=== PATIENT | male | born 1950 | race Caucasian/White ===

== ENCOUNTER 2018-08-27 13:36 | Emergency (ER) | payer BC ==
[~2018-08-27] VITALS: Ht 175.3 cm; Wt 88.5 kg
--- NOTE | 2018-08-27 14:11 | PHYS DOC ---
Adult General Chief Complaint Chief Complaint: ABDOMINAL PAIN HPI HPI Patient is a 68 year old male presents for evaluation of upper abdominal pain that radiates up to his chest. He reports the last couple of days he has been fixing up his house to be put on the market. He sat down to have lunch today, was eating a pizza when he started having upper abdominal pain that started radiating up through his chest. He reports history of some shortness of breath, this is chronic in nature and not new. He denies nausea, vomiting, diarrhea. He reports the pain is still present but to a lesser degree. (SOLANGE BARRAZA APRN) Review of Systems Review of Systems Constitutional: Denies fever or chills [] Eyes: Denies change in visual acuity, redness, or eye pain [] HENT: Denies nasal congestion or sore throat [] Respiratory: Denies cough , reports chronic shortness of breath [] Cardiovascular: No additional information not addressed in HPI [] GI: Reports abdominal pain, denies nausea, vomiting, bloody stools or diarrhea [] : Denies dysuria or hematuria [] Musculoskeletal: Denies back pain or joint pain [] Integument: Denies rash or skin lesions [] Neurologic: Denies headache, focal weakness or sensory changes [] Endocrine: Denies polyuria or polydipsia [] All other systems were reviewed and found to be within normal limits, except as documented in this note. (SOLANGE BARRAZA APRN) Current Medications Current Medications Current Medications Medications (Trade) Dose Ordered Sig/Lamine Start Time Stop Time Status Last Admin Dose Admin Dicyclomine HCl (Bentyl) 20 mg 1X ONCE 08/27/18 16:45 08/27/18 16:46 DC 08/27/18 17:14 20 MG Famotidine (Pepcid Vial) 20 mg 1X ONCE 08/27/18 14:15 08/27/18 14:16 DC 08/27/18 15:38 20 MG Fentanyl Citrate (Fentanyl 2ml Vial) 50 mcg 1X ONCE 08/27/18 15:15 08/27/18 15:16 DC 08/27/18 15:40 50 MCG Lorazepam (Ativan) 1 mg 1X ONCE 08/27/18 16:15 08/27/18 16:18 DC 08/27/18 16:23 1 MG Ondansetron HCl (Zofran) 4 mg 1X ONCE 08/27/18 15:15 08/27/18 15:16 DC 08/27/18 15:37 4 MG (GURVINDER FONTENOT MD) Allergies Allergies Allergies Coded Allergies Type Severity Reaction Last Updated Verified No Known Drug Allergies 08/27/18 No (GURVINDER FONTENOT MD) Physical Exam Physical Exam Constitutional: Well developed, well nourished, no acute distress, non-toxic appearance. [] Neck: Normal range of motion, no tenderness, supple, no stridor. [] Cardiovascular:Heart rate regular rhythm, no murmur [] Lungs & Thorax: Bilateral breath sounds clear to auscultation [] Abdomen: Bowel sounds normal, soft, no tenderness, no masses, no pulsatile masses. [] Skin: Warm, dry, no erythema, no rash. [] Extremities: No tenderness, no cyanosis, no clubbing, ROM intact, no edema. [] Neurologic: Alert and oriented X 3, normal motor function, normal sensory function, no focal deficits noted. [] Psychologic: Affect normal, judgement normal, mood normal. [] (SOLANGE BARRAZA APRN) Current Patient Data Vital Signs Vital Signs Date Time Temp Pulse Resp B/P (MAP) Pulse Ox O2 Delivery O2 Flow Rate FiO2 08/27/18 17:14 78 27 191/99 (129) 100 Room Air 08/27/18 15:37 97.7 97.7 (GURVINDER FONTENOT MD) Lab Values Laboratory Tests Test 08/27/18 14:16 08/27/18 16:10 White Blood Count 6.9 x10^3/uL (4.0-11.0) Red Blood Count 4.37 x10^6/uL (4.30-5.70) Hemoglobin 14.4 g/dL (13.0-17.5) Hematocrit 42.1 % (39.0-53.0) Mean Corpuscular Volume 96 fL (79-100) Mean Corpuscular Hemoglobin 33 pg (25-35) Mean Corpuscular Hemoglobin Concent 34 g/dL (31-37) Red Cell Distribution Width 13.6 % (11.5-14.5) Platelet Count 222 x10^3/uL (140-400) Neutrophils (%) (Auto) 73 % (31-73) Lymphocytes (%) (Auto) 15 % (24-48) L Monocytes (%) (Auto) 9 % (0-9) Eosinophils (%) (Auto) 1 % (0-3) Basophils (%) (Auto) 1 % (0-3) Neutrophils # (Auto) 5.1 x10^3uL (1.8-7.7) Lymphocytes # (Auto) 1.1 x10^3/uL (1.0-4.8) Monocytes # (Auto) 0.6 x10^3/uL (0.0-1.1) Eosinophils # (Auto) 0.1 x10^3/uL (0.0-0.7) Basophils # (Auto) 0.1 x10^3/uL (0.0-0.2) Prothrombin Time 12.8 SEC (11.7-14.0) Prothrombin Time INR 1.0 (0.8-1.1) Sodium Level 136 mmol/L (136-145) Potassium Level 4.3 mmol/L (3.5-5.1) Chloride Level 100 mmol/L (98-107) Carbon Dioxide Level 26 mmol/L (21-32) Anion Gap 10 (6-14) Blood Urea Nitrogen 20 mg/dL (8-26) Creatinine 1.0 mg/dL (0.7-1.3) Estimated GFR (Cockcroft-Gault) 74.3 BUN/Creatinine Ratio 20 (6-20) Glucose Level 122 mg/dL (70-99) H Calcium Level 8.9 mg/dL (8.5-10.1) Magnesium Level 1.9 mg/dL (1.8-2.4) Total Bilirubin 0.5 mg/dL (0.2-1.0) Aspartate Amino Transferase (AST) 33 U/L (15-37) Alanine Aminotransferase (ALT) 34 U/L (16-63) Alkaline Phosphatase 82 U/L (46-116) Creatine Kinase 360 U/L (39-308) H Creatine Kinase MB (Mass) 3.4 ng/mL (0.0-3.6) Creatine Kinase MB Relative Index 0.9 % (0-4) Troponin I Quantitative < 0.017 ng/mL (0.000-0.055) < 0.017 ng/mL (0.000-0.055) HL-Bfu-O-Type Natriuretic Peptide 41 pg/mL (0-124) Total Protein 6.6 g/dL (6.4-8.2) Albumin 3.9 g/dL (3.4-5.0) Albumin/Globulin Ratio 1.4 (1.0-1.7) Lipase 184 U/L (73-393) Laboratory Tests 08/27/18 14:16 Laboratory Tests 08/27/18 14:16 (GURVINDER FONTENOT MD) Lab Values Laboratory Tests Test 08/27/18 14:16 08/27/18 16:10 White Blood Count 6.9 x10^3/uL (4.0-11.0) Red Blood Count 4.37 x10^6/uL (4.30-5.70) Hemoglobin 14.4 g/dL (13.0-17.5) Hematocrit 42.1 % (39.0-53.0) Mean Corpuscular Volume 96 fL (79-100) Mean Corpuscular Hemoglobin 33 pg (25-35) Mean Corpuscular Hemoglobin Concent 34 g/dL (31-37) Red Cell Distribution Width 13.6 % (11.5-14.5) Platelet Count 222 x10^3/uL (140-400) Neutrophils (%) (Auto) 73 % (31-73) Lymphocytes (%) (Auto) 15 % (24-48) L Monocytes (%) (Auto) 9 % (0-9) Eosinophils (%) (Auto) 1 % (0-3) Basophils (%) (Auto) 1 % (0-3) Neutrophils # (Auto) 5.1 x10^3uL (1.8-7.7) Lymphocytes # (Auto) 1.1 x10^3/uL (1.0-4.8) Monocytes # (Auto) 0.6 x10^3/uL (0.0-1.1) Eosinophils # (Auto) 0.1 x10^3/uL (0.0-0.7) Basophils # (Auto) 0.1 x10^3/uL (0.0-0.2) Prothrombin Time 12.8 SEC (11.7-14.0) Prothrombin Time INR 1.0 (0.8-1.1) Sodium Level 136 mmol/L (136-145) Potassium Level 4.3 mmol/L (3.5-5.1) Chloride Level 100 mmol/L (98-107) Carbon Dioxide Level 26 mmol/L (21-32) Anion Gap 10 (6-14) Blood Urea Nitrogen 20 mg/dL (8-26) Creatinine 1.0 mg/dL (0.7-1.3) Estimated GFR (Cockcroft-Gault) 74.3 BUN/Creatinine Ratio 20 (6-20) Glucose Level 122 mg/dL (70-99) H Calcium Level 8.9 mg/dL (8.5-10.1) Magnesium Level 1.9 mg/dL (1.8-2.4) Total Bilirubin 0.5 mg/dL (0.2-1.0) Aspartate Amino Transferase (AST) 33 U/L (15-37) Alanine Aminotransferase (ALT) 34 U/L (16-63) Alkaline Phosphatase 82 U/L (46-116) Creatine Kinase 360 U/L (39-308) H Creatine Kinase MB (Mass) 3.4 ng/mL (0.0-3.6) Creatine Kinase MB Relative Index 0.9 % (0-4) Troponin I Quantitative < 0.017 ng/mL (0.000-0.055) < 0.017 ng/mL (0.000-0.055) AP-Czs-L-Type Natriuretic Peptide 41 pg/mL (0-124) Total Protein 6.6 g/dL (6.4-8.2) Albumin 3.9 g/dL (3.4-5.0) Albumin/Globulin Ratio 1.4 (1.0-1.7) Lipase 184 U/L (73-393) Laboratory Tests 08/27/18 14:16 Laboratory Tests 08/27/18 14:16 (SOLANGE BARRAZA APRN) EKG EKG [] Interpretation Time: EKG heart rate 77, sinus rhythm, no STEMI, read by emergency room physician 1619 repeat EKG heart rate 63 interpretation sinus rhythm, no STEMI, read by emergency room physician (SOLANGE BARRAZA APRN) Radiology/Procedures Radiology/Procedures [] (SOLANGE BARRAZA APRN) Impressions: REASON: upper abd pain PROCEDURE: ABDOMEN LTD Limited abdomen ultrasound study Clinical indications: Upper abdominal pain. FINDINGS: The pancreas is homogeneous without focal enlargement. No hepatic mass is seen. The liver measures 17.5 cm in length which is normal. The intrahepatic portion of the IVC is unremarkable. No focal aneurysmal dilatation of the abdominal aorta is seen. The gallbladder contains a gallstone which measures 21 mm in size. No gallbladder wall thickening is evident. Gallbladder is distended measuring 8.6 cm x 4.7 cm x 4.6 cm. The extra hepatic bile duct measures 4.1 mm in caliber which is normal. The length of the right kidney is 11.5 cm. No hydronephrosis or renal mass or perinephric fluid collection is seen on this side. IMPRESSION: Cholelithiasis. Mildly distended gallbladder. Electronically signed by: Joseph Nelson MD (08/27/2018 4:19 PM) [facility] PROCEDURE: PORTABLE CHEST 1V PORTABLE CHEST 1V History: CHEST PAIN. No comparison. Heart size not enlarged. No evidence of pneumothorax. No pleural effusion. Regional skeleton is intact. IMPRESSION: No consolidating infiltrate. Electronically signed by: Tyler Edge MD (08/27/2018 2:35 PM) [facility] (SOLANGE BARRAZA APRN) Course & Med Decision Making Course & Med Decision Making Pertinent Labs and Imaging studies reviewed. (See chart for details) [1617 was notified by patient's RN patient is complaining of chest pain again, RN will obtain another EKG at this time.] 1645 I discussed lab and ultrasound reports with patient at this time, patient tells me that he was not having pain in his chest when he spoke with the nurse, he was actually having right upper quadrant abdominal pain that had returned. He is currently denying any shortness of breath or chest pain. (SOLANGE BARRAZA APRN) Course & Med Decision Making I was available for consultation regarding this patient's care. I did not see or evaluate the patient unless otherwise specified. (GURVINDER FONTENOT MD) Dragon Disclaimer Dragon Disclaimer This electronic medical record was generated, in whole or in part, using a voice recognition dictation system. (SOLANGE BARRAZA APRN) Departure Departure Impression: Primary Impression: Biliary colic Disposition: 01 HOME, SELF-CARE Condition: IMPROVED Referrals: ASHU PIRES MD Patient Instructions: Biliary Colic SOLANGE BARRAZA APRN Aug 27, 2018 14:11 GURVINDER FONTENOT MD Aug 27, 2018 17:58
[2018-08-27] MEDS ORDERED: FAMOTIDINE 20 MG/2 ML VIAL IVP ONE (14:15)
[2018-08-27 14:25] LABS: BASO # 0.1 x10^3/uL (0.0-0.2); BASO % 1 % (0-3); EOS # 0.1 x10^3/uL (0.0-0.7); EOS % 1 % (0-3); HEMATOCRIT 42.1 % (39.0-53.0); HEMOGLOBIN 14.4 g/dL (13.0-17.5); LYMPH # 1.1 x10^3/uL (1.0-4.8); LYMPH % 15 % (24-48); MEAN CORPUSCULAR HEMOGLOBIN 33 pg (25-35); MEAN CORPUSCULAR HGB CONC 34 g/dL (31-37); MEAN CORPUSCULAR VOLUME 96 fL (79-100); MONO # 0.6 x10^3/uL (0.0-1.1); MONO % 9 % (0-9); NEUT # 5.1 x10^3uL (1.8-7.7); NEUT % 73 % (31-73); PLATELET COUNT 222 x10^3/uL (140-400); RED BLOOD COUNT 4.37 x10^6/uL (4.30-5.70); RED CELL DISTRIBUTION WIDTH 13.6 % (11.5-14.5); WHITE BLOOD COUNT 6.9 x10^3/uL (4.0-11.0)
[2018-08-27 14:34] LABS: CALCIUM 8.9 mg/dL (8.5-10.1); GFR 74.3; POTASSIUM 4.3 mmol/L (3.5-5.1)
--- NOTE | 2018-08-27 14:38 | RAD ---
PORTABLE CHEST 1V History: CHEST PAIN. No comparison. Heart size not enlarged. No evidence of pneumothorax. No pleural effusion. Regional skeleton is intact. IMPRESSION: No consolidating infiltrate. Electronically signed by: Tyler Edge MD (08/27/2018 2:35 PM) [facility]
[2018-08-27 14:39] LABS: PROTHROMBIN TIME PATIENT 12.8 SEC (11.7-14.0)
[2018-08-27 14:43] LABS: ALBUMIN 3.9 g/dL (3.4-5.0); ALBUMIN/GLOBULIN RATIO 1.4 (1.0-1.7); MAGNESIUM 1.9 mg/dL (1.8-2.4); TOTAL BILIRUBIN 0.5 mg/dL (0.2-1.0); TOTAL PROTEIN 6.6 g/dL (6.4-8.2)
[2018-08-27] MEDS ORDERED: ONDANSETRON PF 4 MG/2 ML VIAL. IV ONE (15:15)
[2018-08-27] MEDS ORDERED: fentaNYL PF VIAL 100 MCG/2 ML VIAL IV ONE (15:15)
--- NOTE | 2018-08-27 15:59 | EKG ---
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
--- NOTE | 2018-08-27 16:22 | RAD ---
Limited abdomen ultrasound study Clinical indications: Upper abdominal pain. FINDINGS: The pancreas is homogeneous without focal enlargement. No hepatic mass is seen. The liver measures 17.5 cm in length which is normal. The intrahepatic portion of the IVC is unremarkable. No focal aneurysmal dilatation of the abdominal aorta is seen. The gallbladder contains a gallstone which measures 21 mm in size. No gallbladder wall thickening is evident. Gallbladder is distended measuring 8.6 cm x 4.7 cm x 4.6 cm. The extra hepatic bile duct measures 4.1 mm in caliber which is normal. The length of the right kidney is 11.5 cm. No hydronephrosis or renal mass or perinephric fluid collection is seen on this side. IMPRESSION: Cholelithiasis. Mildly distended gallbladder. Electronically signed by: Joseph Nelson MD (08/27/2018 4:19 PM) [facility]
[2018-08-27] MEDS ORDERED: DICYCLOMINE 20 MG/2 ML AMPUL. IM ONE (16:45)
[2018-08-27 17:14] VITALS: BP 191/99
--- NOTE | 2018-08-28 07:52 | EKG ---
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
== END 2018-08-27 17:25 | disposition home or self-care (01) ==
LOC: ER 13:36
DX: K80.70 Calculus of gallbladder and bile duct without cholecystitis without obstruction (principal); R07.89 Other chest pain; R06.02 Shortness of breath
CPT/HCPCS: 36415; 71045; 76705; 80053; 82553; 83690; 83735; 83880; 84484; 85025; 85610; 93005; 96372; 96374; 96375; 99285; J0500; J2060; J2405; J3010; J3490